=== PATIENT | male | born 1970 | race Caucasian/White ===

== ENCOUNTER → 2017-10-31 | Outpatient (CLI) | payer BC ==
[~2017-10-31] MED LIST: ASPIRIN 81M81 MG/TA2 PO; B-12 250 MCG PO; CLARITIN 1010 MG/TAB PO; HCTZ 25MG TAB25 MG PO; LEXAPRO 10MG10 MG PO; NORCO 325 MG-51 TAB PO; PRINIVIL20 MG PO; PYRIDIUM 100MG100 MG PO; VITAMIN B1225 MCG PO; VITAMINC1000TA
== END ==
LOC: ZCOL.LAB 15:57
DX: Z01.812 Encounter for preprocedural laboratory examination (principal); Z22.322 Carrier or suspected carrier of Methicillin resistant Staphylococcus aureus

== ENCOUNTER → 2017-11-17 | Outpatient (CLI) | payer BC ==
[2017-11-17 14:02] LABS: HEMATOCRIT 44.5 % (42.0-52.0); HEMOGLOBIN 15.4 g/dl (13.5-18.0); MEAN CELL VOLUME 87 fl (80.0-100.0); MEAN CORPUSCULAR HEMOGLOBIN 30 pg (27.0-31.0); MEAN CORPUSCULAR HGB CONC 35 g/dl (33.0-37.0); PLATELET COUNT 237 K/mm3 (130-400); RED BLOOD COUNT 5.09 M/mm3 (4.20-5.60); WHITE BLOOD COUNT 7.1 K/mm3 (4.8-10.8)
[2017-11-17 14:07] LABS: PROTHROMBIN TIME 11.6 SECONDS (9.7-12.8)
[2017-11-17 14:15] LABS: ADJUSTED CALCIUM 8.4 mg/dL (8.4-10.2); ALBUMIN 4.7 gm/dL (3.5-5.0); BILIRUBIN,TOTAL 0.6 mg/dL (0.0-1.0); CREATININE, serum 0.98 mg/dL (0.66-1.25); POTASSIUM 3.2 mmol/L (3.4-5.0); TOTAL PROTEIN 7.6 gm/dL (6.4-8.2)
== END ==
LOC: COL.LAB 13:31
PROVIDERS: Orthopaedic Surgery Sports Medicine
DX: Z01.811 Encounter for preprocedural respiratory examination (principal); M17.12 Unilateral primary osteoarthritis, left knee

== ENCOUNTER 2018-01-31 13:30 | Emergency (ER) | payer BC ==
[~2018-01-31] VITALS: Ht 182.9 cm; Wt 136.9 kg
[2018-01-31 13:33] VITALS: TEMP 98
[2018-01-31] MEDS ORDERED: ASPIRIN 32325 MG/TAB (13:55)
[2018-01-31] MEDS ORDERED: PRINZIDE 25 MG-1 TAB PO (13:56)
[2018-01-31] MEDS ORDERED: CLARITIN 1010 MG/TAB (13:57)
[2018-01-31] MEDS ORDERED: MOBIC15 MG (13:57)
[2018-01-31] MEDS ORDERED: BYSTOLIC5 MG PO (14:35)
[2018-01-31 14:36] LABS: BASO # 0.1 (0.0-0.2); BASO % 1.1 % (0.0-2.0); EOS # 0.1 (0.0-0.7); EOS % 1.4 % (0-4.0); GRAN # 4.4 (1.4-6.5); GRAN % 68.5 % (42.2-75.2); HEMATOCRIT 42.7 % (42.0-52.0); HEMOGLOBIN 14.6 g/dl (13.5-18.0); LYMPH # 1.5 (1.2-3.4); LYMPH % 23.9 % (20.0-51.0); MEAN CELL VOLUME 86 fl (80.0-100.0); MEAN CORPUSCULAR HEMOGLOBIN 29 pg (27.0-31.0); MEAN CORPUSCULAR HGB CONC 34 g/dl (33.0-37.0); MEAN PLATELET VOLUME 9.9 fl (7.4-10.4); MONO # 0.3 (0.1-0.6); MONO % 4.8 % (1.7-9.3); PLATELET COUNT 225 K/mm3 (130-400); RED BLOOD COUNT 4.96 M/mm3 (4.20-5.60); REDCELL DISTRIBUTION WIDTH-CV 12.8 % (11.5-14.5)
[2018-01-31] MEDS ORDERED: FOLIC ACID 40400 MCG PO (14:37)
[2018-01-31 14:44] LABS: PROTHROMBIN TIME 11.5 SECONDS (9.7-12.8)
[2018-01-31 14:50] LABS: ALANINE AMINOTRANSFERASE 65 U/L (21-72); ALBUMIN 4.2 gm/dL (3.5-5.0); ALKALINE PHOSPHATASE 91 U/L (50-136); ANION GAP 10 mmol/L (7-16); AST,SGOT 48 U/L (15-37); BILIRUBIN,TOTAL 0.5 mg/dL (0.0-1.0); BLOOD UREA NITROGEN 15 mg/dL (9-20); CALCIUM 8.6 mg/dL (8.4-10.2); CARBON DIOXIDE 27 mmol/L (22-30); CHLORIDE 99 mmol/L (98-107); CREATININE, serum 0.99 mg/dL (0.66-1.25); GLUCOSE 217 mg/dL (74-106); SODIUM 136 mmol/L (137-145)
[2018-01-31 15:04] LABS: TROPONIN-I < 0.012 ng/mL (0.000-0.034)
[2018-01-31 15:55] VITALS: BP 156/81; PULSE 62
== END 2018-01-31 16:10 | disposition home or self-care (01) ==
LOC: COL.ER 13:30
PROVIDERS: Physician Assistant
DX: R07.89 Other chest pain (principal); I10 Essential (primary) hypertension; E66.9 Obesity, unspecified; Z79.82 Long term (current) use of aspirin
CPT/HCPCS: Q9967

== ENCOUNTER 2019-09-03 12:02 | Day surgery (SDC) | payer BC ==
[~2019-09-03] VITALS: Ht 182.9 cm; Wt 139.5 kg
[~2019-09-03 12:02] MED LIST changes: +ASPIRIN 32325 MG/TAB PO; +BYSTOLIC5 MG PO; +CLARITIN 1010 MG/TAB; +FOLIC ACID 40400 MCG PO; +MOBIC15 MG PO; +PRINZIDE 25 MG-1 TAB PO
[2019-09-03] MEDS ORDERED: AMOXICILLIN 8751 TAB PO (12:35)
[2019-09-03] MEDS ORDERED: FLOMAX 0.40.4 MG/CAP PO (12:38)
[2019-09-03] MEDS ORDERED: PYRIDIUM 100MG100 MG PO (12:38)
[2019-09-03] MEDS ORDERED: LIPITOR 40MG TA40 MG PO (12:39)
[2019-09-03] MEDS ORDERED: NORCO 325 MG-7.1 TAB PO (12:39)
[2019-09-03 13:00] VITALS: BP 151/84; PULSE 60; TEMP 98.4
[2019-09-03 16:25] VITALS: BP 138/74; PULSE 71; TEMP 98.4
--- NOTE | 2019-09-03 16:25 | NUR ---
TO RM 5 PER CART FROM PACU. ALERT ORIENTED X3 TALKING TO STAFF AND . C/O PAIN 4/10 AND DENIES PAIN MED AT THIS TIME. DISCONTINUED O2 PER NC RECEIVED WATER.
[2019-09-03 16:40] VITALS: BP 145/50; PULSE 71
--- NOTE | 2019-09-03 16:40 | NUR ---
RECEIVED 2ND CUP WATER AND CRACKERS.
[2019-09-03 16:55] VITALS: BP 141/65; PULSE 75
--- NOTE | 2019-09-03 16:55 | NUR ---
AMBULATED TO BATHROOM, UNABLE TO VOID AT THIS TIME. RECEIVED 3RD GLASS OF WATER.
[2019-09-03 17:00] VITALS: BP 149/86; PULSE 66
--- NOTE | 2019-09-03 17:00 | NUR ---
PATIENT STATED HE FILLED HIS OWN WATER CUP.
--- NOTE | 2019-09-03 17:30 | NUR ---
BACK TO BATHROOM 2ND TIME AND ONLY VOIDED A FEW DROPS. SCANNED BLADDER WITH 381CC NOTED.
--- NOTE | 2019-09-03 18:10 | NUR ---
PATIENT REQUESTING TO GO HOME. VERBALIZED UNDERSTANDING IF HE COULDN'T PEE HE WOULD HAVE TO COME BACK INTO THE ER TO BE CATHED. DR BE CALLED AND ORDER HE COULD GO HOME WITHOUT VOIDING BEFORE DISCHARGE.
--- NOTE | 2019-09-03 18:20 | NUR ---
RECEIVED DISHCARGE INSTRUCTIONS AND VERBALIZED UNDERSTANDING. DISCONTINUED IV AND INT.
--- NOTE | 2019-09-03 18:35 | NUR ---
AMBULATED TO BATHROOM AND VOIDED. PATIENT DRESSING SELF AND WENT TO GET THE CAR.
--- NOTE | 2019-09-03 18:45 | NUR ---
DISCHARGED PER WC BY NURSING STAFF TO PRIVATE CAR IN CARE OF -ANGELA.
== END 2019-09-03 18:53 | disposition home or self-care (01) ==
LOC: SDCO 12:02
DX: N20.2 Calculus of kidney with calculus of ureter (principal); Z87.442 Personal history of urinary calculi; I10 Essential (primary) hypertension; F41.9 Anxiety disorder, unspecified; Z88.1 Allergy status to other antibiotic agents; Z79.82 Long term (current) use of aspirin; Z79.899 Other long term (current) drug therapy
CPT/HCPCS: C1769; C1894; C2617; J0690; J1100; J1885; J2270; J2405; J2704; J3010; J7120; Q9967

== ENCOUNTER 2021-05-05 08:44 | Observation (INO) | payer BC ==
[2021-05-05] VITALS (7 sets, daily range): BP systolic 123–165; BP diastolic 64–88; PULSE 52–63; TEMP 97.4–98.3
[~2021-05-05] VITALS: Ht 152.4 cm; Wt 142.3 kg
[~2021-05-05 08:44] MED LIST changes: +AMOXICILLIN 8751 TAB PO; +FLOMAX 0.40.4 MG/CAP PO; +LIPITOR 40MG TA40 MG PO; +NORCO 325 MG-7.1 TAB PO
[2021-05-05 09:07] LABS: BASO # 0.1 (0.0-0.2); BASO % 0.7 % (0.0-2.0); EOS # 0.1 (0.0-0.7); EOS % 0.6 % (0-4.0); GRAN # 6.7 (1.4-6.5); HEMATOCRIT 43.7 % (42.0-52.0); HEMOGLOBIN 14.8 g/dl (13.5-18.0); MEAN CELL VOLUME 89 fl (80.0-100.0); MEAN CORPUSCULAR HEMOGLOBIN 30 pg (27.0-31.0); MEAN CORPUSCULAR HGB CONC 34 g/dl (33.0-37.0); MEAN PLATELET VOLUME 9.5 fl (7.4-10.4); MONO # 0.6 (0.1-0.6); MONO % 6.3 % (1.7-9.3); PLATELET COUNT 263 K/mm3 (130-400); RED BLOOD COUNT 4.94 M/mm3 (4.20-5.60)
[2021-05-05 09:18] LABS: ALBUMIN 4.1 gm/dL (3.5-5.0); BILIRUBIN,TOTAL 0.6 mg/dL (0.0-1.0); CALCIUM 9.7 mg/dL (8.4-10.2); CREATININE, serum 1.34 (0.66-1.25); POTASSIUM 3.3 mmol/L (3.4-5.0); TOTAL PROTEIN 7.2 gm/dL (6.4-8.2)
--- NOTE | 2021-05-05 13:30 | NUR ---
Pt arrived to room 317. He is alert and oriented x4. Pain starting to worsen, 1 time dose of Morphine administered. No nausea presently. IV to [facility]. POC discussed with patient and his who verbalize understanding.
--- NOTE | 2021-05-05 14:30 | NUR ---
AVIATION TECHNICIAN started, verified by JORDYN Gee. Instructions given to patient. Updated with POC.
--- NOTE | 2021-05-05 18:00 | NUR ---
Pt left for procedure at this time.
--- NOTE | 2021-05-05 19:45 | NUR ---
Patient back to room 317 from PACU at this time. at bedside. Vital signs are stable and patient is alert and oriented. He ambulates steadily to the bathroom and voids reddish/pink urine. He is able to tolerate liquids and solid food. Discharge orders are in from Dr. Flores and paperwork is underway. Will continue to monitor.
--- NOTE | 2021-05-05 20:45 | NUR ---
Discharge paperwork and education complete. IV removed and patient is walked out by CLOTH PRESSER.
== END 2021-05-05 20:30 | disposition home or self-care (01) ==
LOC: COL.ER 08:44 → MEDICAL 10:43
PROVIDERS: Emergency Medicine; ADMIT Urology
DX: N20.1 Calculus of ureter (principal); I10 Essential (primary) hypertension; M19.90 Unspecified osteoarthritis, unspecified site; F32.9 Major depressive disorder, single episode, unspecified; Z79.899 Other long term (current) drug therapy; Z83.3 Family history of diabetes mellitus; Z80.9 Family history of malignant neoplasm, unspecified
CPT/HCPCS: C1769; C1894; C2617; G0378; J1100; J1885; J2270; J2405; J2704; J3010; J7030; Q9967